=== PATIENT | female | born 1965 | race African-American/Black ===

== ENCOUNTER 2021-04-14 15:57 | Outpatient (REF) | payer MEDICARE, MEDICAID, SELFPAY ==
--- NOTE | ~2021-04-14 | MM_ITS ---
EXAMINATION: MM SCREENING DIGITAL MAMMOGRAPHY, BILATERAL CLINICAL INFORMATION: Screening. Asymptomatic. The lifetime risk of breast cancer based on the Tyrer-Cuzick Model is 8.8%. COMPARISON: Mammography: November 13, 2019 and studies dating back to December 03, 2014 TECHNIQUE: Digital mammography is performed in craniocaudal and mediolateral oblique views along with computer-aided detection (CAD). FINDINGS: The breasts are heterogeneously dense, which may obscure small masses (ACR BI-RADS breast composition Category c). There are no significant masses, abnormal calcifications, or other abnormalities. MM/MM screening mammo BI IMPRESSION: There are no significant changes from prior study. ASSESSMENT: BI-RADS 1: Negative RECOMMENDATION: Routine annual mammography screening. This patient's information was entered into a reminder system with a target due date for their next mammogram.
== END 2021-04-14 15:58 | disposition home or self-care (01) ==
LOC: HO.MAMMO 15:57
PROVIDERS: PCP Nurse Practitioner Family; Visit Provider Nurse Practitioner Family
DX: Z12.31 Encounter for screening mammogram for malignant neoplasm of breast (principal)
CPT/HCPCS: 77067

== ENCOUNTER 2022-02-21 07:00 | Outpatient (REF) | payer MEDICARE, MEDICAID, SELFPAY ==
[2022-02-21 11:34] LABS: Cholesterol 145 mg/dL; HDL Cholesterol 35 mg/dL; LDL Cholesterol Calculated 85 mg/dl; Triglycerides 126 mg/dL
[2022-02-21 11:55] LABS: Thyroid Stimulating Hormone 0.97 uIU/mL (0.32-4.0)
== END 2022-02-21 07:01 | disposition home or self-care (01) ==
LOC: HO.HMGCLDS 07:00
PROVIDERS: Visit Provider Nurse Practitioner Family
DX: E78.5 Hyperlipidemia, unspecified (principal); E03.9 Hypothyroidism, unspecified
CPT/HCPCS: 36415; 80061; 84443

== ENCOUNTER 2022-02-28 07:34 | Outpatient (REF) | payer MEDICARE, MEDICAID, SELFPAY ==
[2022-02-28 11:14] LABS: Hematocrit 41.3 % (37.0-47.0); Hemoglobin 13.5 g/dl (12.0-16.0); Mean Corpuscular HGB Conc 32.7 g/dl (31.0-35.0); Mean Corpuscular Hemoglobin 30.3 pg (27.0-33.0); Mean Corpuscular Volume 92.6 fL (80.0-98.0); Mean Platelet Volume 11.6 fL (9.4-12.3); Platelet Count 215 X10*3/uL (160-400); Red Blood Count 4.46 X10*6/uL (4.20-5.50); Red Cell Distribution Width 14.6 % (11.0-16.0)
[2022-02-28 11:24] LABS: Estimated Average Glucose 105 mg/dL; Hemoglobin A1c % 5.3 %
[2022-02-28 11:28] LABS: Alanine Aminotransferase 15 U/L (0-31); Alkaline Phosphatase 82 U/L (39-117); Anion Gap 11 (12-20); Aspartate Amino Transferase 10 U/L (5-31); Bilirubin Total 0.5 mg/dL (0.0-1.0); Blood Urea Nitrogen 17 mg/dL (9-16); Calcium 9.6 mg/dL (8.4-10.2); Carbon Dioxide 30 mmol/L (22-29); Chloride 105 mmol/L (96-108); Estimated Glomerular Filt Rate > 60; Glucose Random 104 mg/dL (60-115); Sodium 142 mmol/L (135-145); Total Protein 6.9 g/dL (6.5-8.0)
[2022-02-28 11:50] LABS: Vitamin D 25-OH Total 45.4 ng/mL (>30)
[2022-03-02 04:06] LABS: ~HepC Num1 0.14 S/CO (0.00-0.79); ~Hepatitis C Antibody Nonreactive (Nonreactive)
[2022-03-02 04:20] LABS: HIV AB/AG Nonreactive (Nonreactive); HIV Num 1 0.04 S/CO (0.00-0.99)
== END 2022-02-28 07:35 | disposition home or self-care (01) ==
LOC: HO.HMGCLDS 07:34
PROVIDERS: PCP Nurse Practitioner Family; Visit Provider Nurse Practitioner Family
DX: Z00.00 Encounter for general adult medical examination without abnormal findings (principal); I10 Essential (primary) hypertension; E55.9 Vitamin D deficiency, unspecified; R73.01 Impaired fasting glucose; Z11.3 Encounter for screening for infections with a predominantly sexual mode of transmission
CPT/HCPCS: 36415; 80053; 82306; 83036; 85027; 86803; 87389

== ENCOUNTER 2022-04-24 15:40 | Outpatient (REF) | payer MEDICARE, MEDICAID, SELFPAY ==
--- NOTE | ~2022-04-24 | MM_ITS ---
EXAMINATION: MM SCREENING DIGITAL BREAST TOMOSYNTHESIS, BILATERAL CLINICAL INFORMATION: Screening. Asymptomatic. The lifetime risk of breast cancer based on the Tyrer-Cuzick Model is 6.0%. COMPARISON: Mammography: April 14, 2021 and studies dating back to December 03, 2014 TECHNIQUE: Digital breast tomosynthesis is performed in both the craniocaudal and mediolateral oblique views along with computer-aided detection (CAD). Synthesized 2D images are generated from the tomosynthesis. FINDINGS: The breasts are heterogeneously dense, which may obscure small masses (ACR BI-RADS breast composition Category c). There are no significant masses, abnormal calcifications, or other abnormalities. MM/MM tomosynthesis screening BI IMPRESSION: There are no significant changes from prior study. ASSESSMENT: BI-RADS 1: Negative RECOMMENDATION: Routine annual mammography screening. This patient's information was entered into a reminder system with a target due date for their next mammogram.
== END 2022-04-24 15:41 | disposition home or self-care (01) ==
LOC: HO.MAMMO 15:40
PROVIDERS: PCP Nurse Practitioner Family; Visit Provider Nurse Practitioner Family
DX: Z12.31 Encounter for screening mammogram for malignant neoplasm of breast (principal)
CPT/HCPCS: 77063; 77067

== ENCOUNTER → 2023-05-28 16:15 | Outpatient (BNV) | payer OTHER, SELFPAY | PROVIDERS: PCP Nurse Practitioner Family; Visit Provider Radiology Diagnostic Radiology | DX: Z12.31 Encounter for screening mammogram for malignant neoplasm of breast (principal) | CPT/HCPCS: 77063; 77067 ==

== ENCOUNTER 2023-05-28 16:16 | Outpatient (REF) | payer OTHER, SELFPAY ==
--- NOTE | ~2023-05-28 | MM_ITS ---
EXAMINATION: MM SCREENING DIGITAL BREAST TOMOSYNTHESIS, BILATERAL CLINICAL INFORMATION: Screening. Asymptomatic. The lifetime risk of breast cancer based on the Tyrer-Cuzick Model is 6.4%. COMPARISON: Mammography: This study is compared with prior exams dating back to 2019. TECHNIQUE: Digital breast tomosynthesis is performed in both the craniocaudal and mediolateral oblique views along with computer-aided detection (CAD). Synthesized 2D images are generated from the tomosynthesis. FINDINGS: There are scattered areas of fibroglandular density (ACR BI-RADS breast composition Category b). In the central portion of the right breast, there is an asymmetry which warrants additional mammographic imaging. Sonography may be performed at the discretion of the diagnostic radiologist. In the left breast, there are no significant masses, abnormal calcifications, or other abnormalities. MM/MM tomosynthesis screening BI IMPRESSION: Right breast asymmetry warrants additional mammographic imaging. No mammographic signs of malignancy left breast. ASSESSMENT: BI-RADS BI-RADS 0 - Incomplete: Needs additional Imaging. RECOMMENDATION: 1. Additional views of the ...... 2. Targeted ultrasound if warranted after review of the additional views. 3. Radiology department staff will contact the patient for additional imaging. Additional Imaging required This examination should not preclude the clinical evaluation of a suspicious palpable abnormality. This patient's information was entered into a reminder system with a target due date for their next mammogram.
== END 2023-05-28 16:17 | disposition home or self-care (01) ==
LOC: HO.MAMMO 16:16
PROVIDERS: PCP Nurse Practitioner Family; Visit Provider Nurse Practitioner Family
DX: Z12.31 Encounter for screening mammogram for malignant neoplasm of breast (principal)
CPT/HCPCS: 77063; 77067

== ENCOUNTER → 2023-07-15 15:00 | Outpatient (BNV) | payer OTHER, SELFPAY | PROVIDERS: PCP Nurse Practitioner Family; Visit Provider Radiology Diagnostic Radiology | DX: R92.2 Inconclusive mammogram (principal) | CPT/HCPCS: 77065 ==

== ENCOUNTER 2023-07-15 15:19 | Outpatient (REF) | payer OTHER, SELFPAY ==
--- NOTE | ~2023-07-15 | MM_ITS ---
EXAMINATION: MM DIAGNOSTIC DIGITAL BREAST TOMOSYNTHESIS, RIGHT CLINICAL INFORMATION: Evaluate one view asymmetry right breast seen on CC projection only from screening examination. COMPARISON: Mammography: Screening exam 11/28/2022. Exams dating back to 2014. TECHNIQUE: Digital breast tomosynthesis is performed. 2D images are generated from the tomosynthesis. The following views are obtained: Full-field digital 3-D right mediolateral and CC rolled medial and CC rolled lateral views, as well as a 3-D spot compression right CC view. FINDINGS: The breasts are heterogeneously dense, which may obscure small masses (ACR BI-RADS breast composition Category c). The previously identified 1 view asymmetry in the central right breast, middle one third, seen on CC projection only does not persist on diagnostic spot compression, or rolled views, and also has no correlate on the right mediolateral 90 degree view. Finding is consistent with superimposition/summation artifact of normal heterogeneously dense breast tissue. There is probable retroareolar duct ectasia. There are no masses, suspicious calcifications, or regions of architectural distortion in the right breast to suggest malignancy. MM/MM tomosynthesis added views R IMPRESSION: No persistent findings suspicious for malignancy. Recommend the patient resume routine annual screening. ASSESSMENT: BI-RADS BI-RADS 2 - Benign Findings RECOMMENDATION: 1 year F/U Results were provided to the patient at time of visit by the technologist. This patient's information was entered into a reminder system with a target due date for their next mammogram.
== END 2023-07-15 15:20 | disposition home or self-care (01) ==
LOC: HO.MAMMO 15:19
PROVIDERS: PCP Nurse Practitioner Family; Visit Provider Nurse Practitioner Family
DX: N64.89 Other specified disorders of breast (principal)
CPT/HCPCS: 77061; 77065

== ENCOUNTER 2024-07-14 14:41 | Outpatient (REF) | payer OTHER, SELFPAY ==
--- NOTE | ~2024-07-14 | MM_ITS ---
EXAMINATION: MM SCREENING DIGITAL BREAST TOMOSYNTHESIS, BILATERAL CLINICAL INFORMATION: Screening. Asymptomatic. COMPARISON: Mammography: Comparison is made with available prior examinations. TECHNIQUE: Digital breast tomosynthesis is performed in both the craniocaudal and mediolateral oblique views along with computer-aided detection (CAD). Synthesized 2D images are generated from the tomosynthesis. FINDINGS: There are scattered areas of fibroglandular density (ACR BI-RADS breast composition Category b). There are no significant masses, abnormal calcifications, or other abnormalities. MM/MM tomosynthesis screening BI IMPRESSION: No mammographic evidence of malignancy. ASSESSMENT: BI-RADS BI-RADS 1 - Negative RECOMMENDATION: Routine annual mammography screening. 1 year F/U This examination should not preclude the clinical evaluation of a suspicious palpable abnormality. This patient's information was entered into a reminder system with a target due date for their next mammogram. Electronically signed by: Delia Hale DO 08/11/2024 09:38 AM EDT
== END 2024-07-14 14:42 | disposition home or self-care (01) ==
LOC: HO.MAMMO 14:41
PROVIDERS: PCP Student in an Organized Health Care Education/Training Program; Visit Provider Student in an Organized Health Care Education/Training Program
DX: Z12.31 Encounter for screening mammogram for malignant neoplasm of breast (principal)
CPT/HCPCS: 77063; 77067

== ENCOUNTER → 2024-07-14 15:15 | Outpatient (BNV) | payer OTHER, SELFPAY | PROVIDERS: PCP Student in an Organized Health Care Education/Training Program; Visit Provider Internal Medicine | DX: Z12.31 Encounter for screening mammogram for malignant neoplasm of breast (principal) | CPT/HCPCS: 77063; 77067 ==

== ENCOUNTER 2025-07-20 15:08 | Outpatient (REF) | payer OTHER, SELFPAY ==
--- OUTSIDE RECORDS SUMMARY | 2007-11-22 01:00 | XMS_ITS | Encounter Summary ---
Author Organization [facility] Address [address] [facility] [address] [place] [address] Phone Care Team Providers Care Real Estate Subagent Name Role Phone Unavailable Primary Care Provider Unavailabl e Encounter Details Date Type Department Care Team (Late st Contact Info) Description 11/22/2007 Hospital Encounter [facility],Outside Imaging [address] [place] [address] Unknown, Unknown, Social History Tobacco Use Types Packs/Day Years Used Date Smoking Tobacco: Every Day Cigarettes 0.3 54.7 Started: 1970 Smokeless Tobacco: Never Comments:Started age 16, Jim t for 1yr, 3 cigarettes per day Alcohol Use Standard Drinks/Week Comments Not Currently 0 (1 standard drink = 0.6 oz pur e alcohol) Child or Family Care Answer Date Record ed Do you have problems with on e of the following making it difficult for you to work, study, or receive health care? No 03/09/2023 Education Answer Date Recorded Are you interested in more education? Not on eric e 03/09/2025 Are you concerned about learning? Not on file 03/09/2025 No 03/09/2025 No 03/09/2025 Food Answer Date Recorded Within the past 6 months we worried whether our food would run out before we got money to buy more. Never True 03/09/2023 Within the past 6 months the food we bought just didn't last and we didn't have enough money to get more. Never True Residential Stability Answer Date Recor ded What is your housing situation today? I have ernesto sow 03/09/2023 How many times have you move d in the past 12 months? Zero (I did not move) 03/09/2023 Paying for Meds Answer Date Recorded Do you have trouble paying for medicines? No 03/09/2023 Paying Utility Bills Answer Date Record ed Do you have trouble paying your heating or elect ricity bill? No 03/09/2023 Transportation Answer Date Recorded Has the lack of transportati on kept you from medical appointments or from getting medications? No 03/09/2023 Unemployment Answer Date Recorded Are you currently unemployed or working on a part-time or temporary basis, and looking for work? No 03/09/2023 Digital Access Answer Date Recorded No 04/16/2023 No 04/16/2023 Reliable internet access at home? Not on file 04/16/2023 Device with a working camera? Not on file Intimate Partner Violence Answer Date R ecorded Denied Basic Needs Not on file 12/13/2024 In the past 12 months have y ou been in a relationship with a person who hurts, threatens, or tries to control you? No 12/13/2024 Worried food would run out Not on file 12/13 In the past 12 months have y ou been in a relationship with a person who hurts, threatens, or tries to control you? No 12/13/2024 Comments No Sex and Gender Information Value Date Recorded Sex Assigned at Not on file Legal Sex Female 9:40 PM EDT Gender Identity Not on file Sexual Orientation Not on file documented as of this encounter Plan of Treatment Upcoming Encounters Date Type Department Care Team (Late st Contact Info) Description 07/26/2025 3:20 PM EDT Office Visit [facility] [place] [facility] [address] [place] [address] Thom Hussein PA-C [address] [place] [address] [email or web address] documented as of this encounter Procedures Procedure Name Priority Date/Time Associated Diagnosis Comments CT ABDOMEN OUTSIDE (NO INTERPRETATION) Routine 11/22/2007 12:00 AM EST documented in this encounter Results * CT Abdomen Outside (No Interpretation) (11/22/2007 12:00 AM EST) Narrative SYSTEMGENERATED, DOCUMENTATION - 10/25/2024 8:47 AM EST This study is for PACS storage only and not for interpretation. us Unknown Unknown MD YU OUTSIDE IMAGING W/OUT INT ERPRETATION Final Result documented in this encounter Visit Diagnoses Not on filedocumented in this encounter Additional Source Comments The information contained in this document represents components of the legal health record. It is not the complete legal health record.[facility]
--- OUTSIDE RECORDS SUMMARY | 2007-11-22 01:05 | XMS_ITS | Encounter Summary ---
Author Organization [facility] Address [address] [facility] [address] [place] [address] Phone Care Team Providers Care Bit Sander Name Role Phone Unavailable Primary Care Provider Unavailabl e Encounter Details Date Type Department Care Team (Late st Contact Info) Description 11/22/2007 12:05 AM EST Hospital Encounter [facility],Outside Imaging [address] [place] [address] Unknown, Unknown, Social History Tobacco Use Types [...] Description 07/26/2025 3:20 PM EDT Office Visit [facility] [place] [facility] [address] [place] [address] Thom Hussein PA-C [address] [place] [address] [email or web address] documented as of this encounter Procedures Procedure Name Priority Date/Time Associated Diagnosis Comments CT ABDOMEN OUTSIDE (NO INTERPRETATION) Routine 11/22/2007 12:05 AM EST documented in this encounter Results * CT Abdomen Outside (No Interpretation) (11/22/2007 12:05 AM EST) Narrative SYSTEMGENERATED, DOCUMENTATION - 10/25/2024 [...] It is not the complete legal health record.[facility]
--- OUTSIDE RECORDS SUMMARY | 2007-11-22 01:10 | XMS_ITS | Encounter Summary ---
Author Organization [facility] Address [address] [employer] [facility] [address] [place] [phone] Phone Care Team Providers Care Blasting Machine Operator Name Role Phone Unavailable Primary Care Provider Unavailabl e Encounter Details Date Type Department Care Team (Late st Contact Info) Description 11/22/2007 12:10 AM EST Hospital Encounter [facility],Outside Imaging [address] [place] [address] Unknown, Unknown, Social History Tobacco Use Types [...] Description 07/26/2025 3:20 PM EDT Office Visit [facility] [place] [facility] [address] [place] [address] Thom Hussein PA-C [address] [place] [address] [email or web address] documented as of this encounter Procedures Procedure Name Priority Date/Time Associated Diagnosis Comments FL PELVIS OUTSIDE (NO INTERPRETATION) Routine 11/22/2007 12:10 AM EST documented in this encounter Results * FL Pelvis Outside (No Interpretation) (11/22/2007 12:10 AM EST) Narrative SYSTEMGENERATED, DOCUMENTATION - 10/25/2024 8:48 AM EST This study is for PACS storage only and not for interpretation. us Unknown Unknown MD YU OUTSIDE IMAGING W/OUT INT ERPRETATION Final Result documented in this encounter Visit Diagnoses Not on filedocumented in this encounter Additional Source Comments The information contained in this document represents components of the legal health record. It is not the complete legal health record.[facility]
--- OUTSIDE RECORDS SUMMARY | 2025-07-19 15:15 | XMS_ITS | Encounter Summary ---
Author Organization [facility] Address [id number] [place] [phone] Care Team Providers Care Plastic Production Machine Setter Name Role Phone Lakeisha Rodriguez NP Primary Care Provider Unavailabl e Reason for Visit * Reason Comments Nail Problem Dermatophytosis of n ail Encounter Details Date Type Department Care Team (Late st Contact Info) Description 07/19/2025 3:15 PM EDT Office Visit [facility] - [place] [phone] [phone] Darrin Canas DPM [address] [address] Dermatophytosis of nail (Primary Dx); Xerosis of skin; Type II diabetes mellitus with peripheral circulatory disorder (CMS/HCC V24, CMS/HCC V28); Tinea pedis of left foot Social History Tobacco Use Types Packs/Day Years Used Date Smoking Tobacco: Never Assessed Comments Unknown Sex and Gender Information Value Date Recorded Sex Assigned at Not on file Legal Sex Female 3:07 AM EST Gender Identity Not on file Sexual Orientation Not on file documented as of this encounter Progress Notes * Darrin Canas DPM - 07/19/2025 3:15 PM EDT S Patient presents today stating her skin and nails continue to improve she is doing better without medication requires refills of the antifungal states that she also notes that her schedule more dry in the winter she physic a crack sometimes in her heels she states that she would like to know if there is something to be prescribed to help hydrate and soften her skin has been doing well with her diabetic medications still endorses numbness and tingling to her left lower extremity ROS: GENERAL: Pt denies nausea, fever, vomiting, chills, or shortness of breath. Pt in NAD. CARDIOLOGY: pt denies chest pain, palpitations LUNGS: pt denies shortness of breath MUSCULOSKELETAL: See HPI, otherwise no joint pain or swelling, back pain, or muscle pain. SKIN: see HPI, otherwise no lesions, rash or itching NEURO: No persistent headache, weakness or numbness The remainder of the review of systems is noncontributory PAST MEDICAL HISTORY: There is no problem list on file for this patient. Type II diabetic Above-knee amputation right SOCIAL HISTORY: Social History Tobacco Use Smoking status: Not on file Smokeless tobacco: Not on file Substance Use Topics Alcohol use: Not on file History Never marked as reviewed. ACTIVE MEDICATIONS: Current Outpatient Medications Medication Sig Dispense Refill clotrimazole (LOTRIMIN) 1 % cream Apply to skin and toenails daily for 12 weeks 45 g 3 clotrimazole (LOTRIMIN) 1 % cream Apply to skin and toenails daily for 12 weeks 45 g 3 Ciclopirox 0.77 % Gel Apply topically daily Skin left foot 30 g 2 clotrimazole (LOTRIMIN) 1 % cream Apply to skin daily for 6 weeks 30 g 3 chlorhexidine (HIBICLENS) 4 % external liquid Clean feet twice a day 120 mL 2 tolnaftate (TINACTIN) 1 % external solution Apply topically to toenails 10 mL 0 escitalopram (LEXAPRO) 5 MG tablet Take 5 mg by mouth daily. acetaminophen (TYLENOL) 325 MG tablet Take 650 mg by mouth every 6 hours as needed. ALBUTEROL SULFATE 108 (90 Base) MCG/ACT Aero Soln Inhale 2 Puffs into the lungs every 4 hours as needed. furosemide (LASIX) 40 MG tablet Take 40 mg by mouth daily. gabapentin (NEURONTIN) 600 MG tablet Take 600 mg by mouth 2 times daily. lisinopril (PRINIVIL,ZESTRIL) 10 MG tablet Take 10 mg by mouth daily. Omeprazole 20 MG Tablet Delayed Release Dispersible Take by mouth. risperidone (RISPERDAL) 0.5 MG tablet Take 0.5 mg by mouth 2 times daily. risperiDONE Microspheres ER 50 MG Suspension Reconstituted ER Inject into the muscle. simvastatin (ZOCOR) 10 MG tablet Take 10 mg by mouth at bedtime. Multiple Vitamin (Multivitamin Adult) Tab Take by mouth. valacyclovir (VALTREX) 500 MG tablet Take 500 mg by mouth 3 times daily. Cholecalciferol (Vitamin D3) 25 MCG (1000 UT) Tab Take by mouth. levothyroxine (SYNTHROID, LEVOTHROID) 88 MCG tablet Take 88 mcg by mouth daily. metoprolol (TOPROL-XL) 50 MG 24 hr tablet Take 50 mg by mouth daily. NYSTATIN EX Apply topically. budesonide-formoterol (SYMBICORT) 160-4.5 MCG/ACT inhaler Inhale 2 Puffs into the lungs 2 times daily. No current facility-administered medications for this visit. ALLERGIES: Penicillins and Shellfish allergy PHYSICAL EXAM: Height 5' 2 (1.575 m), weight 185 lb (83.9 kg). Estimated body mass index is 33.84 kg/m?? as calculated from the following: Height as of this encounter: 5' 2 (1.575 m). Weight as of this encounter: 185 lb (83.9 kg). BMI PLAN BMI BMI is greater than 25.0 (above the normal range) - see Plan PODIATRIC EXAMINATION: GENERAL: Patient appears well nourished, with NAD. VASCULAR: Dorsalis pedis pulses are 0 out of 4 left y and Posterior tibial pulses are 0-4 left. Capillary filling time within normal limits the digits. No pallor on elevation or rubor on dependency. Absent hair growth. No varicosities. Denies rest pain or claudication pain. NEUROLOGICAL: Sharp/dull sensation diminished, protective sensation diminished 4/5with 5.07 semmes lanec bilaterally, vibratory sensation with tuning fork intact to the tibial tuberosity. ORTHOPEDIC: Right above-knee amputation left foot has normal strength with flexors extensors without atrophy of muscle compartments DERMATOLOGICAL:. Annular scaling both feet mild Left toenails improved yellow discoloration and subungual debris's Dry scaling of skin left heel BIOMECHANICS: STJ ROM wnl, MTJ ROM wnl, 1st MPJ ROM wnl. IMAGING: N/A IMPRESSION: 1. Dermatophytosis of nail 2. Xerosis of skin 3. Type II diabetes mellitus with peripheral circulatory disorder (CMS/HCC V24, CMS/HCC V28) 4. Tinea pedis of left foot PLAN: Pt was seen and examined, history reviewed. Nails cleaned optimize topical therapies discussed patient improving toenail fungus Discussed treatment treatment options for toenail fungus including topical versus oral antifungal medications recommend patient start with white vinegar soaks for 10 to 15 minutes a day with cotton balls or make-up pads to her toenails Continue with clotrimazole refills dispensed per patient's request Continue with ammonium lactate Discussed with patient significant proved her nails and skin I would continue with topical regimen therapy for hygienic purposes Continue with accommodative assistive devices including wheelchair Patient should follow-up in 3-6 months Darrin Canas DPM documented in this encounter Plan of Treatment Not on file documented as of this encounter Visit Diagnoses Diagnosis Dermatophytosis of nail- Primary Xerosis of skin Type II diabetes mellitus with peripheral circulatory disorder ([facility] V24, [facility] V28) Type II or unspecified type diabetes mellitus with peripheral circulatory disorders, not stated as uncontrolled Tinea pedis of left foot documented in this encounter Care Teams Plastic Production Machine Setter Relationship Specialty Start Date End Date Lakeisha Rodriguez NP PCP - General Internal Medicine 05/28/21 documented as of this encounter
--- OUTSIDE RECORDS SUMMARY | 2025-07-20 15:11 | XMS_ITS | Encounter Summary ---
Author Organization [facility] Address [address] [employer] [facility] [address] [place] [phone] Phone Care Team Providers Care Newspaper Photojournalist Name Role Phone Thom Hussein PA-C Primary Care Provider [phone] Encounter Details Date Type Department Care Team (Late st Contact Info) Description 09/11/2024 Procedure Pass [facility], [address] [address] Social History Tobacco Use Types Packs/Day Years Used Date Smoking Tobacco: Every Day Cigarettes 0.3 54.7 Started: 1969 Smokeless Tobacco: Never Comments:Started age 16, Jim [...] Answer Date Recorded Are you interested in help w ith more adult education (for example, completing high school, GED, job training, learning the [place] language, technical skills, or developing parenting skills)? Yes 03/09/2023 Food Answer Date Recorded Within the past [...] ecorded Denied Basic Needs Not on file 09/11/2024 In the past 12 months have y ou been in a relationship with a person who hurts, threatens, or tries to control you? No 09/11/2024 Worried food would run out Not on file 09/11 In the past 12 months have y ou been in a relationship with a person who hurts, threatens, or tries to control you? No 09/11/2024 Comments No Sex and Gender Information Value Date Recorded Sex Assigned at Not on file Legal Sex Female 9:40 PM EDT Gender Identity Not on file Sexual Orientation Not on file documented as of this encounter Plan of Treatment Upcoming Encounters Date Type Department Care Team (Late st Contact Info) Description 07/26/2025 3:20 PM EDT Office Visit [facility] [place] [facility] [address] [place] [address] Thom Hussein PA-C [address] [place] [address] [email or web address] documented as of this encounter Visit Diagnoses Not on filedocumented in this encounter Additional Health Concerns Assessment Noted Time PHQ-2 Depression Total Score: 0 09/11/20 1:22 PM EDT documented as of this encounter Care Teams Newspaper Photojournalist Relationship Specialty Start Date End Date Thom Hussein PA-C [address] [place] [phone] [email or web address] PCP - General Physician Director Hardware 09/11/24 documented as of this encounter Additional Source Comments The information contained in this document represents components of the legal health record. It is not the complete legal health record.[facility]
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
--- OUTSIDE RECORDS SUMMARY | 2025-07-20 15:11 | XMS_ITS | Clinical Summary ---
Author Organization [address] [facility] Address [address] [place] [address] Phone Care Team Providers Care Dispensing Operator Name Role Phone Lakeisha Rodriguez NP Primary Care Provider Unavailabl e Allergies Active Allergy Reactions Criticality Noted Date Comments Penicillins 08/25/2021 Shellfish Containing Products 2020 Medications clotrimazole (LOTRIMIN) 1 % cream Apply to skin and toenails daily for 12 weeks 3 Active ciclopirox (LOPROX) 0.77 % gel Apply topically daily Skin left foot 3 Active clotrimazole (LOTRIMIN) 1 % cream Apply to skin daily for 6 weeks 3 Active chlorhexidine (HIBICLENS) 4 % external liquid Clean feet twice a day 2 Active tolnaftate (TINACTIN) 1 % external solution Apply topically to toenails 2 Active escitalopram (LEXAPRO) 5 mg tablet Take 5 mg by mouth daily. Active acetaminophen (TYLENOL) 325 mg tablet Take 650 mg by mouth every 6 hours as needed. Active albuterol HFA (PROAIR HFA ; PROVENTIL HFA ; VENTOLIN HFA) 90 mcg/actuation inhaler Inhale 2 puffs by mouth every 4 (four) hours if needed. Active furosemide (LASIX) 40 mg tablet Take 40 mg by mouth daily. Active gabapentin (NEURONTIN) 600 mg tablet Take 600 mg by mouth 2 times daily. Active lisinopriL (PRINIVIL,ZESTRIL ) 10 mg tablet Take 10 mg by mouth daily. Active omeprazole 20 mg tablet,disintegra t, delay rel Take by mouth. Ac tive risperiDONE (RisperDAL) 0.5 mg tablet Take 0.5 mg by mouth 2 times daily. Active risperiDONE microspheres (RisperDAL Consta) 50 mg/2 mL injection Inject into the muscle. Active simvastatin (ZOCOR) 10 mg tablet Take 1 tablet (10 mg total) by mouth at bedtime. Active multivitamin (MULTIPLE VITAMINS ORAL) Take by mouth. Active metoprolol succinate (TOPROL-XL) 50 mg 24 hr tablet Take 50 mg by mouth daily. Active valACYclovir (VALTREX) 500 mg tablet Take 500 mg by mouth 3 times daily. Active cholecalciferol (VITAMIN D-3) 25 mcg (1,000 unit) tablet Take by mouth. Activ e budesonide-formot Manny (SYMBICORT) 160-4.5 mcg/actuation inhaler Inhale 2 Puffs into the lungs 2 times daily. Active NYSTATIN ORAL Apply topically. Active levothyroxine (SYNTHROID, LEVOTHROID) 88 mcg tablet Take 88 mcg by mouth daily. Active ammonium lactate (AmLactin) 12 % lotion Apply topically if needed for dry skin. 400 g 5 01/03/20 26 Active Active Problems Problem Noted Date Diagnosed Date Type 2 diabetes mellitus wit h peripheral circulatory disorder ([facility] V24, [facility] V28) 10/10/2024 Diabetic mononeuropathy simplex ([facility] V24, CM S/[facility] V28) 10/10/2024 Tinea pedis of left foot 10/10/2024 Encounters Date Type Department Care Team Description 07/19/2025 3:15 PM EDT Office Visit Orthopedic Surgery - [address] [address] Darrin Canas, DPM Dermatophytosis of nail (Primary Dx); Xerosis of skin; Type II diabetes mellitus with peripheral circulatory disorder ([facility] V24, [facility] V28); Tinea pedis of left foot from Last 3 Months Social History Tobacco Use Types Packs/Day Years Used Date Smoking Tobacco: Never Assessed Comments Unknown Sex and Gender Information Value Date Recorded Sex Assigned at Not on file Legal Sex Female 3:07 AM EST Gender Identity Not on file Sexual Orientation Not on file Last Filed Vital Signs Vital Sign Reading Time Taken Comments Blood Pressure - - Pulse - - Temperature - - Respiratory Rate - - Oxygen Saturation - - Inhaled Oxygen Concentration - - Weight 83.9 kg (185 lb) 01/03/2025 3:25 PM EST Height 157.5 cm (5' 2.01 ) 01/03/2025 3:25 PM ES T Body Mass Index 33.83 01/03/2025 3:25 PM EST Plan of Treatment Health Maintenance Due Date Last Done Comments Breast Cancer Screening 1966 Diabetes: Annual Foot Exam 1976 Diabetes: Annual Retina Eye Exam 1976 Hepatitis B Vaccines (1 of 3 - 19+ 3-dose series) 1985 Pneumococcal Vaccine: 50+ Years (1 of 2 - PCV) 1985 Cervical Cancer Screening: Pap Smear 1987 Zoster Vaccines (1 of 2) 2016 Cholesterol Screening (Lipid Panel) 10/25/2022 Colorectal Cancer Screening: Colonoscopy 10/25/2022 HIV Screening 10/25/2022 Hepatitis C Screening 10/25/2022 Medicare Annual Wellness Visit 10/25/2022 Social Influencers of Health Screening 10/25/2022 COVID-19 Vaccine ( season) 2024 01/11/2022, 12/14/2021 Diabetes: Annual Urine Albumin-Creatinine Ratio (uACR) 08/31/2024 Diabetes: Blood Sugar Control Test (HGBA1C) 08/31/2024 Depression Screening 11/22/2024 Influenza Vaccine (#1) 2025 , 09/16/2023, 10/06/2022, Additional history exists Diabetes: Annual GFR (Glomerular Filtration Rate) 09/11/2025 09/11/2024, 10/06/2022, 05/01/2020, Additional history exists Hypertension/CHF/CAD Annual BMP Blood Test 09/11/2025 09/11/2024, 10/06/2022, 05/01/2020, Additional history exists DTaP,Tdap,and Td Vaccines (2 - Td or Tdap) 12/20/2029 12/20/2019 RSV Immunization Adult Patients (1 - 1-dose 75+ series) 2041 HIB Vaccines Aged Out No longer eligi ble based on patient's age to complete this topic HPV Vaccines Aged Out No longer eligi ble based on patient's age to complete this topic Hepatitis A Vaccines Aged Out No long er eligible based on patient's age to complete this topic IPV Vaccines Aged Out No longer eligi ble based on patient's age to complete this topic MMR Vaccines Aged Out No longer eligi ble based on patient's age to complete this topic Meningococcal ACWY Vaccine Aged Out N o longer eligible based on patient's age to complete this topic Meningococcal B Vaccine Aged Out No l onger eligible based on patient's age to complete this topic RSV Immunization Patients Under 20 months Aged Out No longer eligible based on patient's age to complete this topic Varicella Vaccines Aged Out No longer eligible based on patient's age to complete this topic Insurance [employer] MEDICARE Member Subscriber Plan / Payer (Ef fective 2022-Present) Name:ELVIE CASTANO Relation to Subscriber:Self Name:Elvie Castano Payer ID:[id number] Group ID:[id number] Type:Not on file Address: [place] [address] [address] [id number] Care Teams Dispensing Operator Relationship Specialty Start Date End Date Lakeisha Rodriguez NP PCP - General Internal Medicine 05/28/21
--- OUTSIDE RECORDS SUMMARY | 2025-07-20 15:11 | XMS_ITS | Encounter Summary ---
Author Organization [facility]erged With [facility] Address [address] [address] Phone Care Team Providers Care Runner Worker Name Role Phone Thom Hussein PA-C Primary Care Provider [phone] Reason for Visit * Reason Comments Medication Refill Encounter Details Date Type Department Care Team (Late st Contact Info) Description 07/18/2025 Refill [facility] [place] Internal Medicine [address] [place], [place] [phone] Thom Hussein PA-C [address] [place] [address] [email or web address] Medication Refill Social History Tobacco Use Types Packs/Day Years [...] as of this encounter Progress Notes * Radha Amado MA - 07/19/2025 7:33 AM EDT Rx Care Gap Status - Instructions for Clinical Staff (prescriber discretion applies): > Mismatch review guide > N/a - No action needed Visit Info Last visit: 04/30/2025 Thom Hussein PA-C - Internal Medicine [facility] > Requested f/u: Return in about 3 months (around 07/31/2025) for Recheck- 40 minutes . Upcoming visit: 07/26/2025 Thom Hussein PA-C - Internal Medicine [facility] ACTIONS TAKEN BY Radha Amado MA - Criteria met. Asthma / COPD Inhalers Rx Protocol - budesonide/formoterol fumarate Criteria met; renew for up to 12 months. Visit in the past 14 months: Yes documented in this encounter Plan of Treatment Upcoming Encounters Date Type Department Care Team (Late st Contact Info) Description 07/26/2025 3:20 PM EDT Office Visit [facility] Internal Medicine [address] [place] [id number] Thom Hussein PA-C [address] [place] [address] [email or web address] documented as of this encounter Visit Diagnoses Diagnosis Chronic obstructive pulmonary disease, unspecified COPD type Flu vaccine need- Primary documented in this encounter Additional Health Concerns Assessment Noted Time PHQ-2 Depression Total Score: 0 12/13/19 25 2:45 PM EST documented as of this encounter Care Teams Runner Worker Relationship Specialty Start Date End Date Thom Hussein PA-C [address] [place] [address] [email or web address] PCP - General Physician Telecommunication Operator 09/11/24 documented as of this encounter Additional Source Comments The information contained in this document represents components of the legal health record. It is not the complete legal health record.[facility]
== END 2025-07-20 15:09 | disposition home or self-care (01) ==
LOC: HO.MAMMO 15:08
PROVIDERS: PCP Physician Assistant Surgical; Visit Provider Student in an Organized Health Care Education/Training Program
DX: Z12.31 Encounter for screening mammogram for malignant neoplasm of breast (principal)
CPT/HCPCS: 77063; 77067

== ENCOUNTER → 2025-07-20 15:15 | Outpatient (BNV) | payer OTHER, SELFPAY | PROVIDERS: PCP Physician Assistant Surgical; Visit Provider Internal Medicine | DX: Z12.31 Encounter for screening mammogram for malignant neoplasm of breast (principal) | CPT/HCPCS: 77063; 77067 ==